=== PATIENT | male | born 1990 | race Two or more races ===

== ENCOUNTER 2017-07-16 04:52 | Emergency (ER) | payer MEDICAID, OTHER ==
[~2017-07-16] VITALS: Ht 170.2 cm; Wt 63.5 kg
[2017-07-16 04:55] VITALS: BP 127/74
== END 2017-07-16 05:40 | disposition home or self-care (01) ==
LOC: ER 04:54
DX: S93.601A Unspecified sprain of right foot, initial encounter (principal); W23.1XXA Caught, crushed, jammed, or pinched between stationary objects, initial encounter; Y93.89 Activity, other specified; Y92.89 Other specified places as the place of occurrence of the external cause; Y99.8 Other external cause status
CPT/HCPCS: 73630; 99284; A4606; Z7610